=== PATIENT | male | born 1955 | race Caucasian/White ===

== ENCOUNTER 2024-08-17 17:10 | Emergency (ER) | payer MEDICARE, OTHER, SELFPAY ==
[2024-08-17 17:10] VITALS: BP 159/79; PULSE 85; RESP 18; TEMP 37.3; O2SAT 95; BMI 31.4
--- NOTE | 2024-08-17 17:40 | EX.ED.DYSGE1 ---
HPI History of Present Illness Chief Complaint: General Illness Informant: patient and spouse/S.O. Onset/Context/Timing Onset: Today and Yesterday Context: Gradual Onset Timing: Continuous Current Severity: Mild Maximum Severity: Mild Narrative Narrative: 69-year-old male visiting from out of town family for the holidays. 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 CAD with stents. Currently is on anticoagulation with Coumadin. She just feels weak and fatigued. He has a sore throat and nonproductive cough last 2 days. No fever. No vomiting mild nausea no diarrhea. Denies any difficulty urinating. No dysuria. He has been able to drink fluids. Denies any chest pain. No abdominal pain. Recent Illness/Hospitalization: No PFSH PFSH Medical History Pacemaker HTN (hypertension) Home Medications ?Medication ?Instructions ?Recorded ?Last Taken ?Type lisinopril 5 mg tablet 5 mg PO BID 30 days #60 tabs 08/17/24 Unknown Rx Allergy/AdvReac Type Severity Reaction Status Date / Time No Known Allergies Allergy Verified 08/17/24 17:10 Surgical History Stented coronary artery Social History Smoking Status: Current some day smoker tobacco type: cigarettes ROS ROS ED ROS Narrative Nonproductive cough. Sore throat. Fatigue. Nausea. No vomiting or diarrhea. No melena. No dysuria. Constitutional Constitutional ED: Denies chills or fever(s) Eyes Eyes: Denies blurry vision ENT ENT ED: Reports sore throat; Denies ear pain or rhinorrhea Cardiovascular Cardiovascular: Denies chest pain Respiratory/Chest Respiratory/Chest: Reports cough; Denies dyspnea Gastrointestinal Gastrointestinal: Reports nausea; Denies abdominal pain, constipation, diarrhea, melena or vomiting Genitourinary Genitourinary ED: Denies dysuria or hematuria Musculoskeletal Musculoskeletal: Denies arthralgias Integumentary Denies abscess Neurologic Neurologic: Denies headache(s) Psychiatric Psychiatric: Denies anxiety Endocrine Endocrinology: Denies cold intolerance Hematologic/Lymphatic Hematologic/Lymphatic: Reports none Allergic/Immunologic Allergic/Immunologic ED: Denies mouth swelling, tongue swelling or urticaria EXAM Physical Exam Narrative Exam Narrative: 69-year-old male no acute distress vital signs are stable temperature 99.2. Pulse ox 95% room air no hypoxia. He is no distress. Sitting upright in bed. bedside. [place] EENT exam pupils round reactive light. No facial droop. Normal speech. Mytrex members. Neck nontender no JVD. No lymphadenopathy. Lungs clear to auscultation bilaterally. Dry cough. Heart regular rhythm no murmur rate about 85. Chest wall ribs nontender. Abdomen soft nontender. No peritoneal signs. Back nontender. Moving all 4 extremities. Normal run lead strength. Normal dorsi plantarflexion. No edema. Neurologically he is awake and alert. No focal motor deficits. Answer questions and following commands. Const Vital Signs: 08/17/24 17:10 Temperature 99.2 F H Temperature Source Oral Pulse Rate 85 Respiratory Rate 18 Blood Pressure 159/79 H Blood Pressure Mean 105 Pulse Ox 95 Oxygen Delivery Method Room Air Positive well nourished and well developed; Negative for cachectic, contractures or unkempt General Appearance ED: well developed and NAD; Negative for unkempt, cachectic, contractures, cyanotic, diaphoretic or pallor Nutritional Appearance: Negative for cachectic HEENT Reports moist mucous membranes; Denies dry mucous membranes Negative for trauma or tenderness Mouth ED: No dry mucous membranes Mouth: No dry mucous membranes Eyes PERRL and EOMs intact bilaterally General Eye ED: Negative for pale conjunctiva or scleral icterus Neck no lymphadenopathy, supple and no JVD General: Negative for tenderness Lymph Lymphatic: Negative for other Chest Wall inspection of chest normal and palpation of chest normal Resp normal respiratory effort and clear to auscultation bilaterally Effort and Inspection: Negative for retractions Auscultation: Negative for rales, rhonchi, wheezes or diminished lung sounds Cardio regular rhythm, S1 normal heart sound, S2 normal heart sound and no murmurs GI normal to inspection, nondistended, normoactive bowel sounds, non-tender, non-distended and no masses Palpation: soft; Negative for tender, guarding or rebound tenderness present Back/Spine no CVA tenderness General Back: Negative for CVA tenderness Cervical Spine: Negative for cervical spine tenderness Thoracic Spine / Upper Back: Negative for thoracic spinal tenderness or paraspinal muscle tenderness Lumbar Spine / Lower Back: Negative for lumbar spinal tenderness Extremity normal to inspection General Extremety ED: Negative for edema or tenderness General Extremity: Negative for edema Neuro oriented x3 and CN's II-XII intact bilaterally Sensorium / Orientation: alert; Negative for orientation impaired, lethargic or stuporous Motor Exam: strength 5/5 throughout Psych mental status grossly normal Appearance: Negative for unkempt Attitude: No agitated Mood & Affect: Negative for depressed, anxious or tearful Skin no rashes or lesions noted and no wounds General Skin Exam: Negative for jaundice or pallor Lesions: No lesion noted Rashes: No rashes noted Trauma: Negative for abrasion Wounds: Negative for wounds noted MDM MDM MDM Narrative Medical decision making narrative: 69-year-old male on Coumadin extensive past medical history with feeling of fatigue and nonproductive cough. Suspect viral syndrome. Rule out pneumonia versus other etiologies. COVID and flu testing. Chest x-ray and labs. Repeat exam patient is doing well. We went over his test results. I suspect this is from a viral syndrome. He does not need any antibiotics. I repeat his temperature is 99.9. He will be given a dose of Tylenol. They are comfortable being discharged home. Currently they are from out of town visiting family. He is out of his lisinopril and needed a refill. I will send in a prescription for the next 30 days to local pharmacy. History & Record Review Discussion w/independent historian: Patient Additional record(s) reviewed:: No prior records Lab Data Attestation: I reviewed the patient's lab results. Lab results narrative: CBC normal. White count 8. H&H 17 and 50. Platelet count slightly low at 122. PT/INR of 24 and 2.2 he is on Coumadin. Electrolytes show potassium 3.4. Gap 7. Normal BUN of 10 creatinine 0.8. Glucose 112. Chest x-ray chronic changes. COVID and flu test negative. Labs: Laboratory Results - last 24 hr 08/17/24 17:44 WBC 8.2 RBC 6.00 Hgb 17.1 H Hct 50.6 MCV 84.3 MCH 28.5 MCHC 33.8 RDW Std Deviation 44.2 H RDW Coeff of Eric 14.5 Plt Count 122 L MPV 12.4 H Immature Gran % (Auto) 0.400 Neut % (Auto) 79.9 H Lymph % (Auto) 6.6 L [place] % (Auto) 12.2 H Eos % (Auto) 0.2 Baso % (Auto) 0.7 Absolute Neuts (auto) 6.6 Absolute Lymphs (auto) 0.54 L Nucleated RBC % 0 PT 24.6 H INR 2.2 Sodium 138 Potassium 3.4 L Chloride 107 Carbon Dioxide 25.0 Anion Gap 7 BUN 10 Creatinine 0.88 Estim Creat Clear Calc 91.04 Est GFR (MDRD) Af Amer 110 Est GFR (MDRD) Non-Af 91 BUN/Creatinine Ratio 11.4 Glucose 112 H Calcium 8.4 L Radiography Chest X-Ray - ED: 2 View, Read by ED Physician, Normal, Heart, Lungs, Mediastinum, Bony Structures, No Acute Disease and Chronic Changes Diagnostic Testing: Chest x-ray, 2 views, interpreted by myself shows no acute abnormality. Left-sided pacemaker. Right-sided shoulder prosthesis. Discharge Plan Triage Chief Complaint: General Illness ED Provider: Ricco Oneill Dx/Rx/DC Orders Clinical Impression: Viral syndrome, Hx of valvular heart disease, Chronic anticoagulation, Thrombocytopenia Instructions: ED Viral Syndrome (Adult) Prescriptions: New lisinopril 5 mg tablet 5 mg PO BID 30 Days Qty: 60 0RF Primary Care Provider: Cody Landa,Out of Referrals: [facility] ,Out of [Primary Care Provider] - Activity Restrictions/Additional Instructions: Labs and chest x-ray look good. I think this is secondary to a virus. Your COVID and flu and RSV test were negative. Plenty of fluids and rest. Tylenol for any fever and bodyaches. Follow-up with a local doctor return if you are feeling a lot worse. I sent in a prescription for your lisinopril at the [facility]. Print Language: Thai Disposition Disposition: Home, Self Care
[2024-08-17 17:51] LABS: Absolute Lymphocyte Count 0.54 X10^3/uL (0.83-4.51); Absolute Neutrophil Count 6.6 X10^3/uL (2.0-7.7); Basophil# 0.06 X10^3/uL; Basophil% 0.7 % (0-1); Eosinophil# 0.02 X10^3/uL; Eosinophils% 0.2 % (0-5); Hematocrit 50.6 % (40-54); Hemoglobin 17.1 g/dL (13.0-16.5); Lymphocyte # 0.54 X10^3/ul (0.83-4.51); Lymphocyte % 6.6 % (19-41); Mean Corp Hgb Conc 33.8 g/dL (32-36); Mean Corpuscular Hgb 28.5 pg (27.0-32.0); Mean Corpuscular Volume 84.3 fL (80-94); Mean Platelet Vol. 12.4 fl (6.2-12.0); Monocyte% 12.2 % (0-10); NRBC Flagged by Analyzer 0 % (0-5); Neutrophil # 6.58 X10^3/uL (2.7-7.7); Neutrophil % 79.9 % (47-70); POSITIVE DIFFERENTIAL YES; Platelet Count 122 K/mm3 (150-450); RBC Distribution Width CV 14.5 % (11.6-14.6); RBC Distribution Width SD 44.2 fl (35.1-43.9); White Blood Count 8.2 K/mm3 (4.4-11.0)
--- NOTE | 2024-08-17 17:55 | RAD_ITS ---
STUDY: X-RAY CHEST REASON FOR EXAM: Male, 69 years old. cough TECHNIQUE: Frontal and lateral views of the chest. COMPARISON: None. FINDINGS: Bipolar pacer on the left. Sternotomy wires. Right shoulder arthroplasty. The lungs are clear and expanded. There is no demonstrated pleural abnormality. Normal size heart. Normal mediastinum and katerin. Normal visualized pulmonary arteries. Normal visualized aortic arch and descending thoracic aorta. Kyphosis and multiple mild compression fractures, age indeterminate. Normal visualized ribs, clavicles, and shoulders. There is no demonstrated abnormality of the visualized soft tissue structures of the upper abdomen. RAD/Chest PA and Lateral IMPRESSION: No consolidation Electronically Signed: Fabricio Honeycutt MD at 19:22 EST ,
[2024-08-17 18:03] LABS: International Normalized Ratio 2.2; Prothrombin Time (Protime)PT. 24.6 SECONDS (11.7-14.9)
[2024-08-17 18:22] LABS: Anion Gap 7 (5-15); BUN 10 mg/dL (7-18); BUN/Creat Ratio 11.4 RATIO (10-20); Calcium,Total 8.4 mg/dL (8.5-10.1); Chloride 107 mmol/L (98-107); Creatinine, Serum 0.88 mg/dL (0.70-1.30); EST Glomerular Filtration Rate 91 mL/min (>60); Est Glom Filt Rate - Afr Amer 110 mL/min (>60); Estimated Creatinine Clearance 91.04 ml/min; Glucose 112 mg/dL (74-106); Potassium 3.4 mmol/L (3.5-5.1); Sodium Level 138 mmol/L (136-145)
[2024-08-17] MEDS: Acetaminophen 500 MG Tablet 1000 MG PO (18:47)
== END 2024-08-17 18:49 | disposition home or self-care (01) ==
PROVIDERS: Emergency Provider Emergency Medicine; Visit Provider Emergency Medicine
DX: B34.9 Viral infection, unspecified (principal); I25.10 Atherosclerotic heart disease of native coronary artery without angina pectoris; D69.6 Thrombocytopenia, unspecified; F17.210 Nicotine dependence, cigarettes, uncomplicated; Z79.01 Long term (current) use of anticoagulants; Z95.5 Presence of coronary angioplasty implant and graft
CPT/HCPCS: 71046; 80048; 85025; 85610; 87631; 99282